=== PATIENT | male | born 1985 | race African-American/Black ===

== ENCOUNTER 2023-04-09 08:56 | Emergency (ER) | payer OTHER ==
[~2023-04-09] VITALS: Ht 188 cm; Wt 74.0 kg
[2023-04-09 09:25] VITALS: BP 148/105; PULSE 124; RESP 20; TEMP 98.7; O2SAT 100
[2023-04-09] MEDS ORDERED: HYDR26CR2 TP (12:44)
== END 2023-04-09 16:22 | disposition home or self-care (01) ==
LOC: ER 08:56
DX: K64.4 Residual hemorrhoidal skin tags (principal)
CPT/HCPCS: 99281

== ENCOUNTER 2023-09-09 00:27 | Emergency (ER) | payer MEDICAID, OTHER ==
[~2023-09-09] VITALS: Ht 188 cm; Wt 90.0 kg
[~2023-09-09 00:27] MED LIST: HYDR26CR2 TP
[2023-09-09 00:30] VITALS: TEMP 98.2; O2SAT 100
[2023-09-09] MEDS ORDERED: IBUP-2029 MT (00:40)
[2023-09-09 00:45] VITALS: BP 137/96; PULSE 92; RESP 18
[2023-09-09] MEDS: IBUPROFEN 600MG TABLET PO ONE (00:45)
== END 2023-09-09 02:04 | disposition home or self-care (01) ==
LOC: ER 00:27
DX: S00.81XA Abrasion of other part of head, initial encounter (principal); Y04.0XXA Assault by unarmed brawl or fight, initial encounter; Y93.89 Activity, other specified; Y92.89 Other specified places as the place of occurrence of the external cause; Y99.8 Other external cause status
CPT/HCPCS: 99283